=== PATIENT | male | born 1960 | race Caucasian/White ===

== ENCOUNTER → 2016-07-20 | Outpatient (CLI) | payer BC ==
--- NOTE | 2016-07-20 11:41 | XR ---
EXAMINATION TYPE: XR chest 2V DATE OF EXAM: 07/20/2016 11:36 AM COMPARISON: 07/23/2015 HISTORY: Smoking and cough FINDINGS: The lungs are clear and there is no pneumothorax, pleural effusion, or focal pneumonia. Heart is en larged and there is hyperinflation suggestive of COPD. Degenerative change of the spine. IMPRESSION: 1. No acute process.
== END | disposition home or self-care (01) ==
LOC: RADXRMAIN 11:17
PROVIDERS: ATTEND Family Medicine
DX: F17.210 Nicotine dependence, cigarettes, uncomplicated (principal)
CPT/HCPCS: 71020

== ENCOUNTER → 2017-09-11 | Outpatient (CLI) | payer BC ==
--- NOTE | 2017-09-11 08:20 | XR ---
EXAMINATION TYPE: XR chest 2V DATE OF EXAM: 09/11/2017 COMPARISON: Prior chest x-ray 07/20/2016 HISTORY: Z00.00 TECHNIQUE: Frontal and lateral views of the chest are obtained. FINDINGS: There is no focal air space opacity, pleural effusion, or pneumothorax seen. Prominent primitivo g volume could be indicative of underlying COPD. The cardiac silhouette size is within normal limits. The osseous structures are intact. IMPRESSION: No acute cardiopulmonary process.
== END | disposition home or self-care (01) ==
LOC: RADXRMAIN 07:40
PROVIDERS: ATTEND Family Medicine
DX: Z00.00 Encounter for general adult medical examination without abnormal findings (principal)
CPT/HCPCS: 71046

== ENCOUNTER → 2018-08-16 | Outpatient (CLI) | payer BC ==
--- NOTE | 2018-08-16 09:38 | XR ---
EXAMINATION TYPE: XR chest 2V DATE OF EXAM: 08/16/2018 COMPARISON: 09/11/2017 TECHNIQUE: PA and lateral views submitted. HISTORY: Physical exam FINDINGS: The lungs are clear and there is no pneumothorax, pleural effusion, or focal pneumonia. Hypertrophi c and degenerative change of the spine. IMPRESSION: 1. No acute process.
== END | disposition home or self-care (01) ==
LOC: RADXRMAIN 07:12
PROVIDERS: ATTEND Family Medicine
DX: Z00.00 Encounter for general adult medical examination without abnormal findings (principal)
CPT/HCPCS: 71046

== ENCOUNTER → 2019-08-27 | Outpatient (CLI) | payer BC ==
--- NOTE | 2019-08-27 12:08 | XR ---
EXAMINATION TYPE: XR chest 2V DATE OF EXAM: 08/27/2019 COMPARISON: 08/16/2018 TECHNIQUE: PA and lateral views submitted. HISTORY: Cough, nicotine dependence FINDINGS: The lungs are clear and there is no pneumothorax, pleural effusion, or focal pneumonia. Degenerative change of the spine. No overt failure. Heart size normal. IMPRESSION: 1. No acute process.
--- NOTE | 2019-08-27 14:49 | CT ---
EXAMINATION TYPE: CT abdomen pelvis wo con DATE OF EXAM: 08/27/2019 COMPARISON: Prior CT 03/26/2014 HISTORY: LLQ pain, possible hernia CT DLP: 918.3 mGycm Automated exposure control for dose reduction was used. TECHNIQUE: Helical acquisition of images from the lung bases through the pelvis without intravenous contrast, patient received oral contrast only. FINDINGS: Lack of intravenous contrast could compromise sensitivity. LUNG BASES: No significant abnormality is appreciated. AORTA: No significant abnormality is appreciataed. LIVER/GB: Low-attenuation within the liver suggests hepatic steatosis, probable cyst present adjacent to the gallbladder, gallbladder is unremarkable PANCREAS: No significant abnormality is seen. SPLEEN: No significant abnormality is seen. ADRENALS: Fat-containing right adrenal lesion shows a similar appearance.. KIDNEYS: Nonobstructive calculi are associated with the left kidney, small calculi mid pole and lower pole measuring only 3 to 4 mm, there is likely a exophytic cyst at the lower pole left kidney measur ing 5 cm, there is a component of low-attenuation extending into the renal pelvis, possible parapelvi c cyst, no ureteral calcification evident REPRODUCTIVE ORGANS: Prostate shows associated calcification. URINARY BLADDER: No significant abnormality is seen. BOWEL: No significant abnormality is seen. FREE AIR: No Free Air is visible. ASCITES: None visible. PELVIC ADENOPATHY: None visualized. RETROPERITONEAL ADENOPATHY: No Retroperitoneal Adenopathy visible. OSSEOUS STRUCTURES: Spondylolysis present bilaterally at L5, anterolisthesis grade 1 L5-S1, vacuum p henomenon present at multiple intervertebral levels including L3-4, L4-5 and L5-S1, is multilevel spo ndylosis with loss of disc height consistent with degenerative disc disease, there is a spinal curvat ure present. IMPRESSION: NONCONTRAST EXAM. PROBABLE EXOPHYTIC CYST LEFT KIDNEY COULD BE BETTER EVALUATED WITH ULTRASOUND. LEFT NEPHROLITHIASIS IS NONOBSTRUCTIVE. ADDITIONAL FINDINGS ABOVE.
== END | disposition home or self-care (01) ==
LOC: RADCTMAIN 11:48
PROVIDERS: ATTEND Family Medicine
DX: N20.0 Calculus of kidney (principal); N42.89 Other specified disorders of prostate; F17.210 Nicotine dependence, cigarettes, uncomplicated
CPT/HCPCS: 71046; 74176

== ENCOUNTER → 2020-08-24 | Outpatient (CLI) | payer BC ==
--- NOTE | 2020-08-24 09:06 | XR ---
EXAMINATION TYPE: XR chest 2V DATE OF EXAM: 08/24/2020 COMPARISON: 08/27/2019 TECHNIQUE: PA and lateral views submitted. HISTORY: Cough FINDINGS: The lungs are clear and there is no pneumothorax, pleural effusion, or focal pneumonia. Heart size normal. No overt failure. Hypertrophic and degenerative changes spine. Hyperinflation noted. IMPRESSION: 1. No acute process. 2. Correlate for COPD.
== END | disposition home or self-care (01) ==
LOC: RADXRMAIN 07:49
PROVIDERS: ATTEND Family Medicine
DX: Z00.00 Encounter for general adult medical examination without abnormal findings (principal); F17.210 Nicotine dependence, cigarettes, uncomplicated
CPT/HCPCS: 71046

== ENCOUNTER → 2021-08-24 | Outpatient (CLI) | payer MEDICAID ==
--- NOTE | 2021-08-24 09:57 | XR ---
EXAMINATION TYPE: XR chest 2V DATE OF EXAM: 08/24/2021 COMPARISON: 08/24/2020 TECHNIQUE: PA and lateral views submitted. HISTORY: Shortness of breath FINDINGS: The lungs are clear and there is no pneumothorax, pleural effusion, or focal pneumonia. Heart size normal. No overt failure. Hyperinflation of the lungs and degenerative changes of the spine. IMPRESSION: 1. COPD.
== END | disposition home or self-care (01) ==
LOC: RADXRMAIN 07:10
PROVIDERS: ATTEND Family Medicine
DX: J44.9 Chronic obstructive pulmonary disease, unspecified (principal)
CPT/HCPCS: 71046

== ENCOUNTER → 2024-03-26 | Outpatient (CLI) | payer MEDICARE ==
[2024-03-26 13:40] LABS: African American GFR (CKD) >90 (>60 ml/min/1.73 sqM); Blood Urea Nitrogen 15 mg/dL (9-20); Non-African American GFR(CKD) 87 (>60 ml/min/1.73 sqM)
--- NOTE | 2024-03-27 11:31 | CT ---
EXAMINATION TYPE: CT brain w con DATE OF EXAM: 03/26/2024 COMPARISON: None HISTORY: 64-year-old male H81.4, Dizziness x [address] DLP: 1171 mGycm Automated exposure control for dose reduction was used. Technique: CT scan of the head is performed with IV Contrast, patient injected with 100 mL of Isovue 300. Coronal and sagittal reconstructions performed. FINDINGS: There is no abnormal enhancing mass or midline shift identified. Dural venous sinuses are patent. Th e ventricles and sulci are within normal limits in size. Mild age-related volume loss overlying the b ifrontal convexities. Mild lobulated mucosal thickening floors of the maxillary sinuses. Trace mucosal thickening ethmoid a ir cells and left sphenoid sinus. Mastoid air cells well pneumatized. Orbits and globes appear intact . Leftward nasal septal deviation. IMPRESSION : Aside from scattered mild chronic paranasal sinus disease and mild age-related bifrontal cerebral vol ume loss, negative contrast enhanced head CT exam. [facility], , 03/27/2024 11:29 AM
== END | disposition home or self-care (01) ==
LOC: RADCTMAIN 12:55
PROVIDERS: ATTEND Family Medicine
DX: H81.4 Vertigo of central origin
CPT/HCPCS: 36415; 70460; 82565; 84520

== ENCOUNTER → 2024-04-02 | Outpatient (CLI) | payer MEDICARE ==
--- NOTE | 2024-04-08 14:06 | CTL ---
EXAMINATION TYPE: CT Low Dose Lung DATE OF EXAM ORDERED: 04/02/2024 HISTORY: Nicotine dependence. Lung cancer screening CT DLP: 130.[address] CTDI: 3.6 mGy Automated exposure control for dose reduction was used. SCREENING VISIT: Initial COMPARISON: None TECHNIQUE: Low dose computed tomography scan was performed through the chest at 1 mm thick sections a nd reconstructed images in the coronal plane at [address] DIAGNOSTIC QUALITY: Satisfactory FINDINGS: LUNG NODULES: None. LUNGS: COPD: Severity: None Fibrosis: Severity: None Lymph nodes: None Other findings: None RIGHT PLEURAL SPACE: Effusion: None Calcification: None Thickening: None Pneumothorax: None LEFT PLEURAL SPACE: Effusion: None Calcification: None Thickening: None Pneumothorax: None HEART: Other: Ascending thoracic aorta at the level the main pulmonary artery measures 4.1 cm. The main pul monary artery at the bifurcation measures 3.3 cm. Heart Size: Normal Coronary calcification: Pericardial effusion: None OTHER FINDINGS: Upper abdomen: Normal Bony thorax: Normal Supraclavicular region: Normal IMPRESSION: 1. No suspicious changes to suggest primary or metastatic neoplasm FOLLOW UP CT CHEST RECOMMENDATION: Follow-up low dose CT chest [address] LUNG RAD: 2 [facility] [place], , 04/08/2024 2:03 PM
== END | disposition home or self-care (01) ==
LOC: RADCTMAIN 09:27
PROVIDERS: ATTEND Family Medicine
DX: Z12.2 Encounter for screening for malignant neoplasm of respiratory organs (principal); F17.210 Nicotine dependence, cigarettes, uncomplicated
CPT/HCPCS: 71271